=== PATIENT | female | born 2000 | race Two or more races ===

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

== ENCOUNTER → 2018-02-03 | Outpatient (REF) | payer OTHER ==
[2018-02-03 22:02] LABS: APPEARANCE, URINE CLEAR (CLEAR); BACTERIA, URINE AUTO 1+ (NEGATIVE); BILIRUBIN, URINE AUTO NEGATIVE (NEGATIVE); BLOOD, URINE BLOOD 1+ (NEGATIVE); COLOR, URINE YELLOW (YELLOW); GLUCOSE, URINE (UA) AUTO NEGATIVE (NEGATIVE); KETONE, URINE AUTO NEGATIVE (NEGATIVE); LEUKOCYTE ESTERASE, URINE AUTO TRACE (NEGATIVE); MUCUS, URINE SMALL (NEGATIVE); NITRITE, URINE AUTO NEGATIVE (NEGATIVE); PROTEIN, URINE AUTO NEGATIVE (NEGATIVE); RBC, URINE AUTO 2 /HPF (0-3); SPECIFIC GRAVITY URINE AUTO 1.024 (1.002-1.035); SQUAMOUS EPITHELIAL CELL UR AU 10 /HPF (0-6); WBC, URINE AUTO 5 /HPF (0-3)
== END ==
LOC: M LAB REF 09:52
DX: N39.0 Urinary tract infection, site not specified (principal)

== ENCOUNTER 2018-07-28 16:48 | Emergency (ER) | payer OTHER ==
[2018-07-28] MEDS: LIDOCAINE 2% W/EPIN INJ 20ML **PRES FREE INJ (17:00)
[2018-07-28] MEDS ORDERED: LIDOCAINE W/EPINEPHRINE 1% 20ML VIAL SC (17:15)
== END 2018-07-28 18:22 | disposition home or self-care (01) ==
LOC: M ED 16:48
DX: S51.812A Laceration without foreign body of left forearm, initial encounter (principal); W26.9XXA Contact with unspecified sharp object(s), initial encounter; Y92.9 Unspecified place or not applicable; Y93.9 Activity, unspecified; Y99.9 Unspecified external cause status; Z91.5 Personal history of self-harm
CPT/HCPCS: 12001

== ENCOUNTER 2018-12-11 14:04 | Emergency (ER) | payer OTHER ==
[~2018-12-11] VITALS: Ht 175.3 cm; Wt 104.5 kg
[~2018-12-11 14:04] MED LIST changes: +BACI50OI EXT; +IBUP-1022 PO; +MACR100C43 PO; +PYRI1TAB5 PO; +ROBA500T PO
[2018-12-11] MEDS ORDERED: AUGM875T28 PO (15:51)
[2018-12-11] MEDS ORDERED: MAGICMW SSP (15:51)
[2018-12-11] MEDS ORDERED: PRED20TA PO (15:52)
[2018-12-11] MEDS ORDERED: IBUPROFEN 800 MG TAB PO ONE (16:00)
[2018-12-11] MEDS ORDERED: AUGMENTIN 875 MG TAB PO ONE (16:00)
[2018-12-11 16:13] VITALS: BP 138/76
== END 2018-12-11 16:14 | disposition home or self-care (01) ==
LOC: M ED 14:04
DX: J01.90 Acute sinusitis, unspecified (principal); J03.90 Acute tonsillitis, unspecified

== ENCOUNTER → 2019-03-14 | Outpatient (CLI) | payer OTHER ==
[~2019-03-14] MED LIST changes: +AUGM875T28 PO; +MAGICMW SSP; +PRED20TA PO
--- NOTE | 2019-03-15 09:51 | REP ---
Clinical: Dating and viability. Technique: Transabdominal and transvaginal first trimester obstetrical channel with color Doppler evaluation. Findings: Single live early intrauterine is appreciated. Gestational sac with yolk sac and pole identified. Alden-rump length of 15 mm corresponds to 7 weeks 6 days gestational age with estimated date of delivery 10/25/2019 . heart rate equals 163 beats per minute. No gross abnormalities are identified. Impression: Single live early intrauterine at 7 weeks 6 days gestational age. Complete anatomical assessment should be performed and 19-20 weeks. Electronically Signed by Alejo Hayes MD 03/15/2019 09:43 A
== END ==
LOC: M RAD 10:30
PROVIDERS: ATTEND Nurse Practitioner Family
DX: Z36.9 Encounter for antenatal screening, unspecified (principal); Z3A.01 Less than 8 weeks gestation of pregnancy

== ENCOUNTER → 2019-03-25 | Outpatient (REF) | payer OTHER ==
[2019-03-25 13:30] LABS: HEMATOCRIT 38.9 % (36.0-47.0); HEMOGLOBIN 12.7 g/dl (12.0-15.5); MEAN CORPUSCULAR HEMOGLOBIN 30.2 pg (27.0-33.0); MEAN CORPUSCULAR HGB CONC 32.6 g/dl (32.0-36.5); MEAN CORPUSCULAR VOLUME 92.4 fl (80.0-96.0); PLATELET COUNT, AUTOMATED 240 10^3/uL (150-450); RED BLOOD COUNT 4.21 10^6/uL (4.00-5.40); WHITE BLOOD COUNT 6.8 10^3/uL (4.0-10.0)
[2019-03-25 13:44] LABS: HCG, SERUM QUANTITATIVE 71146 MIU/ML
[2019-03-25 13:50] LABS: RUBELLA IgG QUALITATIVE IMMUNE (IMMUNE)
[2019-03-25 13:51] LABS: HEPATITIS B SURFACE ANTIGEN NEGATIVE (NEGATIVE)
[2019-03-25 14:05] LABS: HEMOGLOBIN A1c 5.5 %
[2019-03-25 14:19] LABS: HEPATITIS C VIRUS ABY INDEX 0.1 INDEX (<0.8); HIV 1&2 SCREEN CENTAUR NEGATIVE (NEGATIVE)
[2019-03-28 00:14] LABS: HEMOGLOBIN A 97.5 % (96.4-98.8); HEMOGLOBIN A2 2.5 % (1.8-3.2); HGB SOLUBILITY Negative (Negative)
== END ==
LOC: M LAB REF 12:24
PROVIDERS: ATTEND Nurse Practitioner Women's Health
DX: Z34.01 Encounter for supervision of normal first pregnancy, first trimester (principal)

== ENCOUNTER → 2019-08-15 | Outpatient (CLI) | payer OTHER ==
[2019-08-15 19:43] LABS: HEMATOCRIT 38.9 % (36.0-47.0); HEMOGLOBIN 11.9 g/dl (12.0-15.5); MEAN CORPUSCULAR HEMOGLOBIN 29.8 pg (27.0-33.0); MEAN CORPUSCULAR HGB CONC 30.6 g/dl (32.0-36.5); MEAN CORPUSCULAR VOLUME 97.3 fl (80.0-96.0); PLATELET COUNT, AUTOMATED 223 10^3/uL (150-450); WHITE BLOOD COUNT 9.4 10^3/uL (4.0-10.0)
== END ==
LOC: M WUC 11:34
PROVIDERS: ATTEND Nurse Practitioner Women's Health
DX: Z34.02 Encounter for supervision of normal first pregnancy, second trimester (principal)

== ENCOUNTER → 2019-09-26 | Outpatient (REF) | payer OTHER | LOC: M LAB REF 13:18 | PROVIDERS: ATTEND Obstetrics & Gynecology | DX: Z36.85 Encounter for antenatal screening for Streptococcus B (principal) ==

== ENCOUNTER 2019-10-16 23:15 | Inpatient (IN) | payer OTHER ==
[~2019-10-16] VITALS: Ht 172.7 cm; Wt 116.2 kg
[2019-10-16 23:37] VITALS: BP 124/76
[2019-10-17] VITALS (43 sets, daily range): BP systolic 107–153; BP diastolic 53–90
[2019-10-17] MEDS ORDERED: LACTATED RINGER'S 1000 ML IV STA (00:30)
[2019-10-17] MEDS ORDERED: LR 1,000 ML IV SCH ×2 (00:30→09:15)
[2019-10-17 00:57] LABS: BASO % 0.3 % (0.0-1.0); EOS % 0.1 % (0.0-3.0); HEMATOCRIT 37.9 % (36.0-47.0); HEMOGLOBIN 12.3 g/dl (12.0-15.5); LYMPH # 2.6 10^3/uL (1.5-5.0); LYMPH % 18.4 % (24.0-44.0); MEAN CORPUSCULAR HEMOGLOBIN 29.7 pg (27.0-33.0); MEAN CORPUSCULAR HGB CONC 32.5 g/dl (32.0-36.5); MEAN CORPUSCULAR VOLUME 91.5 fl (80.0-96.0); NEUTROPHILS # 10.5 10^3/uL (1.5-8.5); NEUTROPHILS % 73.8 % (36.0-66.0); PLATELET COUNT, AUTOMATED 271 10^3/uL (150-450); RED BLOOD COUNT 4.14 10^6/uL (4.00-5.40); WHITE BLOOD COUNT 14.2 10^3/uL (4.0-10.0)
[2019-10-17] MEDS ORDERED: OXYTOCIN 30 UNITS IN 0.9% NaCl 500ML IV BAG (J2590) As Ordered ONE ×2 (01:50→08:38)
[2019-10-17] MEDS ORDERED: FENTANYL 2MCG/ML ROPIVACAINE 0.2% IN 0.9% NACL 100ML IVBAG As Ordered ONE (01:53)
[2019-10-17] MEDS ORDERED: miSOPROStol 50 MCG 1/2 TAB (S0191) As Ordered ONE (02:19)
[2019-10-17] MEDS ORDERED: miSOPROStol 50 MCG 1/2 TAB (S0191) PO SCH (02:30)
[2019-10-17] MEDS ORDERED: ONDANSETRON 4MG/2ML VIAL (J2405) IV PRN ×2 (02:55→09:15)
[2019-10-17] MEDS ORDERED: REFRIGERATOR IV KEYS XX PRN (02:55)
[2019-10-17] MEDS ORDERED: ePHEDrine SULFATE 25 MG/5 ML(5MG/ML) SYRINGE IV PRN (02:55)
[2019-10-17] MEDS ORDERED: LACTATED RINGER'S 1000 ML IV PRN (02:55)
[2019-10-17] MEDS ORDERED: NALOXONE INJ 0.4 MG/1 ML VIAL (J2310) IV PRN ×3 (02:55→08:20)
[2019-10-17] MEDS ORDERED: diphenhydrAMINE INJ 50MG/ML VIAL (J1200) IV PRN ×2 (02:55→08:20)
[2019-10-17] MEDS ORDERED: EPIDURAL/PCA KEYS XX PRN (02:55)
[2019-10-17] MEDS ORDERED: EPIDURAL COMMENT XX SCH (02:55)
[2019-10-17] MEDS ORDERED: FENTANYL/ROPIVACAINE/NACL BAG 100 ML EPIDURAL SCH (02:55)
--- NOTE | 2019-10-17 05:24 | HPE ---
DATE OF ADMISSION: 10/17/2019 HISTORY OF PRESENT ILLNESS: Flori is a 19-year-old female 1, para 0 with an estimated date of confinement (EDC) of 10/31/2019, estimated gestational age (EGA) 38-1/7 weeks gestation who presented to labor and delivery with gross rupture of membrane, meconium-stained fluid. The patient with irregular contractions. Her record reviewed which was essentially unremarkable. The patient was a late registrant to our office in her second trimester. Her lab blood type is O+, rubella immune, hepatitis negative, HIV negative, GC chlamydia negative, 1-hour sugar testing was within normal limits. Her GBS is negative. PAST MEDICAL HISTORY: Significant for obesity. PAST SURGICAL HISTORY: Denies. SOCIAL HISTORY: She denies any alcohol, drug or cigarette smoking. FAMILY HISTORY: Significant for alcoholism and liver disease and bipolar disorder. MEDICATIONS: - vitamin ALLERGIES: No known drug allergies. PHYSICAL EXAMINATION ON ADMISSION: General: Obese female in no acute distress. Abdomen: Soft, nontender, nondistended. Extremities: No clubbing, cyanosis or edema. Vaginal exam: 1-2 cm dilated, grossly ruptured meconium-stained fluid. Fetus in vertex position. Tracing reviewed category one tracing with irregular contractions. ASSESSMENT: Intrauterine at 38 weeks gestation with gross rupture of membrane, meconium-stained stained fluid in early labor. PLAN: Admit to labor and delivery. Routine labs sent. Induction discussed with the patient, will initiate Cytotec, pain management also discussed. The patient opts for an epidural will continue to monitor. Anticipate delivery.
[2019-10-17] MEDS ORDERED: ceFAZolin SOD 2 GM in IV 1 EA IV ONE (07:30)
[2019-10-17] MEDS ORDERED: BICITRA 30ML SOLN UDC PO ONE (07:30)
[2019-10-17] MEDS ORDERED: BICITRA 30ML SOLN UDC As Ordered ONE (07:33)
[2019-10-17] MEDS ORDERED: ceFAZolin 2 GM/D5W 50 ML IV BAG (J0690 PER 500MG) As Ordered ONE (07:33)
[2019-10-17] MEDS ORDERED: NALBUPHINE HCL 10 MG/ML AMP (J2300) IV PRN (08:20)
[2019-10-17] MEDS ORDERED: METOCLOPRAMIDE INJ 10MG/2ML VIAL (J2765) IV PRN (08:20)
[2019-10-17] MEDS ORDERED: KETOROLAC 60 MG/2 ML VIAL (J1885) As Ordered ONE (08:36)
[2019-10-17] MEDS ORDERED: fentaNYL 100 MCG/2 ML INJECTION (J3010) As Ordered ONE (08:36)
[2019-10-17] MEDS ORDERED: BUPIVACAINE HCL 0.5% 30 ML VIAL As Ordered ONE (08:36)
[2019-10-17] MEDS ORDERED: MIDAZOLAM INJ 2 MG/2 ML VIAL (J2250) As Ordered ONE (08:36)
[2019-10-17] MEDS ORDERED: KETAMINE HCL 200 MG/20 ML VIAL As Ordered ONE (08:36)
[2019-10-17] MEDS ORDERED: ONDANSETRON 4MG/2ML VIAL (J2405) As Ordered ONE (08:36)
[2019-10-17] MEDS ORDERED: dexameTHASONE 4 MG/ML 1ML VIAL (J1100) As Ordered ONE (08:36)
[2019-10-17] MEDS ORDERED: MORPHINE PRES-FREE INJ 10 MG/10 ML VIAL (J2274) As Ordered ONE (08:36)
[2019-10-17] MEDS ORDERED: LIDOCAINE 2% W/EPIN INJ 20ML **PRES FREE As Ordered ONE (08:36)
[2019-10-17] MEDS ORDERED: OXYTOCIN DRIP 30 UNITS in IV 1 EA IV SCH (08:43)
[2019-10-17] MEDS ORDERED: MEASLES,MUMPS,RUBELLA VACCINE INJ (MMR-II) (90707) SC SCH (08:45)
[2019-10-17] MEDS ORDERED: ACETAMINOPHEN TAB 650MG DOSE (2X325MG) PO PRN (08:45)
[2019-10-17] MEDS ORDERED: ONDANSETRON 4 MG TAB (S0181) PO PRN (08:45)
[2019-10-17] MEDS ORDERED: RHOGAM 300 MCG (1500 IU) INJ (J2790) IM SCH (08:45)
[2019-10-17 08:56] LABS: CORD GAS ABE V -5.2; CORD GAS O2 SAT V 68.7 %; CORD GAS PCO2 V 48.7 mmHg; CORD GAS PH V 7.273 UNITS; CORD GAS PO2 V 30.5 mmHg; CORD GAS SBC V 19.6 MEQ/L; CORD GAS TCO2 V 23.5 MEQ/L
[2019-10-17 08:58] LABS: CORD GAS HCO3 A 27.8 MEQ/L; CORD GAS O2 SAT A 23.8 %; CORD GAS PCO2 A 63.8 mmHg; CORD GAS PH A 7.257 UNITS; CORD GAS PO2 A 14.6 mmHg; CORD GAS SBC A 21.8 MEQ/L; CORD GAS TCO2 A 29.8 MEQ/L
[2019-10-17] MEDS: PRENATAL VITAMINS CHEWABLE TABLET PO SCH (09:00)
[2019-10-17] MEDS: DOCUSATE SODIUM 100 MG CAP PO SCH ×2 (09:00→22:20)
[2019-10-17] MEDS ORDERED: fentaNYL 100 MCG/2 ML INJECTION (J3010) IV PRN (09:15)
[2019-10-17] MEDS ORDERED: PERCOCET 5MG/325MG TAB PO PRN (09:15)
[2019-10-17] MEDS ORDERED: BUPIVACAINE HCL 0.5% 30 ML VIAL SC ONE (09:45)
[2019-10-17] MEDS: KETOROLAC 30 MG/ML VIAL (J1885) IV SCH ×2 (15:09→19:46)
[2019-10-17] MEDS: ONDANSETRON 4MG/2ML VIAL (J2405) IV PRN ×2 (15:10→19:33)
--- NOTE | 2019-10-17 15:29 | RO ---
DATE OF PROCEDURE: 10/17/2019 Flori is a 19-year-old female 1, para 0 who presented at 38-1/7 weeks gestation with spontaneous rupture of membrane, meconium-stained fluid. She underwent an epidural and had repetitive late deceleration even after repositioning oxygen and amnioinfusion. Given that she was remote from delivery at this point a decision was made to proceed with a primary section. PREOPERATIVE DIAGNOSES: 1. Intrauterine at 38-1/7 week gestation with spontaneous rupture of membrane, meconium-stained fluid. 2. Non-reassuring heart rate tracing remote from delivery. POSTOPERATIVE DIAGNOSES: 1. Intrauterine at 38-1/7 week gestation with spontaneous rupture of membrane, meconium-stained fluid. 2. Non-reassuring heart rate tracing remote from delivery. PROCEDURE: Primary low transverse section via Pfannenstiel incision. ANESTHESIA: Epidural. SURGEON Dr. Mondragon FORECAST ANALYST: Dr. Sanon COMPLICATIONS: None. ESTIMATED BLOOD LOSS: 600 mL. FINDINGS: Live female in occiput transverse position. scores 8 and 9. weight 7 pounds 5 ounces. Normal-appearing placenta and normal tubes and ovaries. PROCEDURE: After obtaining informed consent the patient was taken to the operating room where epidural anesthetic was found to be adequate. She was then draped and prepped in the usual sterile fashion. In the supine position, with the help of my assistant store manager operations Dr. Sanon, a Pfannenstiel incision was made. This was carried down to the fascia. Fascia was incised in midline fashion and carried through laterally. Superior aspect of the fascia then grasped with Belen clamp, then tented off and dissected off the rectus muscles sharply. The inferior aspect was dissected off in similar fashion. Rectus muscles midline fashion. Perineum identified. Perineal cavity entered bluntly. Superior and inferior dissection of the peritoneum was then done with good visualization of the bladder. At this point a Mobius skin retractor was placed. A low-transverse uterine incision was made. Infant was delivered in atraumatic fashion. Nose and mouth bulb suctioned. Cord doubly clamped and cut and was handed over to awaiting warmer. Cord blood and cord gas were sent. Placenta removed manually. Uterus cleared of all clot and debris and the uterine incision was then repaired in two separate layers of 0 Vicryl sutures. Pelvis copiously irrigated with normal saline and suctioned out. Attention turned to the peritoneum which was closed in running fashion using 2-0 Vicryl. Fascia closed in two separate segment of 0 Vicryl sutures and the skin was re-approximated in subcuticular fashion using 3-0 Vicryl on a Bello. Steri-Strips placed. 0.25% Marcaine was placed at the operative site for postoperative pain. The patient tolerated procedure well. She was then transferred to recovery room in stable condition. MAUREEN
[2019-10-17] MEDS ORDERED: LR 500 ML IV ONE (19:15)
[2019-10-18 02:00] VITALS: BP 106/56
[2019-10-18] MEDS: KETOROLAC 30 MG/ML VIAL (J1885) IV SCH (02:11)
[2019-10-18 06:00] VITALS: BP 119/63
--- NOTE | 2019-10-18 07:51 | POST-OPPD ---
Postoperative Procedure Note Date Of Procedure: Oct 18, 2019 S: Doing well w/o complaints. Pain well controlled. + ambulation and voids. O: vss, AF geN: well appearing abd: soft, FF@u-2 incision: c/d/i ext: calf tenderness A/P: POD#1 s/p 1LTCS - recovering in stable condition -cont routine postop care -d/c plan tomorrow GILBERT TUCKER MD. Oct 18, 2019 07:51
[2019-10-18] MEDS: DOCUSATE SODIUM 100 MG CAP PO SCH ×2 (07:59→21:11)
[2019-10-18] MEDS: PRENATAL VITAMINS CHEWABLE TABLET PO SCH (07:59)
[2019-10-18 08:42] LABS: HEMATOCRIT 30.6 % (36.0-47.0); HEMOGLOBIN 9.7 g/dl (12.0-15.5); MEAN CORPUSCULAR HEMOGLOBIN 29.7 pg (27.0-33.0); MEAN CORPUSCULAR HGB CONC 31.7 g/dl (32.0-36.5); MEAN CORPUSCULAR VOLUME 93.6 fl (80.0-96.0); PLATELET COUNT, AUTOMATED 173 10^3/uL (150-450); RED BLOOD COUNT 3.27 10^6/uL (4.00-5.40); WHITE BLOOD COUNT 11.3 10^3/uL (4.0-10.0)
[2019-10-18] MEDS: IBUPROFEN 800 MG TAB PO SCH ×2 (09:35→18:00)
[2019-10-18 10:05] VITALS: BP 135/60
[2019-10-18] MEDS: PERCOCET 5MG/325MG TAB PO PRN ×2 (15:01→21:11)
[2019-10-18 17:57] VITALS: BP 132/67
[2019-10-18 22:00] VITALS: BP 113/58
[2019-10-19 02:00] VITALS: BP 122/71
[2019-10-19] MEDS: IBUPROFEN 800 MG TAB PO SCH ×2 (02:59→11:11)
[2019-10-19 06:00] VITALS: BP 133/67
--- NOTE | 2019-10-19 07:11 | DS.PDOC ---
Discharge Summary General Date of Admission Oct 17, 2019 at 00:11 Date of Discharge Sep Discharge Summary PROCEDURES PERFORMED DURING STAY: Primary section ADMITTING DIAGNOSES: 1. Prelabor rupture of membranes @ term 2. Meconium stained fluid DISCHARGE DIAGNOSES: 1. Primary section for nonreassuring status 2. Meconium stained fluid COMPLICATIONS/CHIEF COMPLAINT: Labor Check. HISTORY OF PRESENT ILLNESS: 19yo G1 EVIE 10/31/2019. Presented at 38w1d with complaints of spontaneous rupture of membranes. Meconium stained fluid noted. Induction of labor was attempted. Primary performed by Dr Mondragon for non reassuring status HOSPITAL COURSE: Ms Hoang reports adequate pain management. She is tolerating a regular diet. on demand. Out of bed independently. Voiding and passing flatus. DISCHARGE MEDICATIONS: Please see below. ALLERGIES: Please see below. PHYSICAL EXAMINATION ON DISCHARGE: VITAL SIGNS: Please see below. GENERAL: NAD HEENT: WNL NECK: Supple CARDIOVASCULAR EXAMINATION: HRR, normotensive RESPIRATORY EXAMINATION: Clear and unlabored ABDOMINAL EXAMINATION: Fundus firm. Steri strips in place. Wound clean, dry, well approximated without evidence infection EXTREMITIES: Equal strength and motion SKIN: Intact NEUROLOGICAL EXAMINATION: Grossly intact PSYCHIATRIC EXAMINATION: Appropriate LABORATORY DATA: Please see below. PROGNOSIS: Good ACTIVITY: As tolerated DIET: As tolerated DISCHARGE PLAN: Discharge today. Routine precautions. RTO 2 wks and 6 wks DISPOSITION:Home DISCHARGE INSTRUCTIONS: 1. Continue PNV. Ibuprofen around the clock. Supplement with percocet prn. 2. Routine precautions. Pelvic rest. Call with fever, N/V, foul lochia or wound exudate. DISCHARGE CONDITION: Stable Vital Signs/I&Os Vital Signs Date Time Temp Pulse Resp B/P (MAP) Pulse Ox O2 Delivery O2 Flow Rate FiO2 10/19/19 06:00 98.2 60 17 133/67 (89) 98 Room Air Laboratory Data Labs 24H Laboratory Tests 2 10/18/19 08:14: Nucleated Red Blood Cells % (auto) 0.0 CBC/BMP Laboratory Tests 10/18/19 08:14 Discharge Medications Scheduled Amoxicillin/Potassium Clav (Augmentin 875-125 Tablet) 1 Each Tablet, 1 TAB PO BID Prednisone (Prednisone) 20 Mg Tablet, 40 MG PO DAILY Scheduled PRN Ibuprofen (Ibuprofen) 600 Mg Tab, 600 MG PO Q6H PRN for PAIN Magic Mouthwash (First-Mouthwash Blm) 1 Ea Susp, 10 ML SSP QID PRN for MUCOSITIS (Diphenhydramine/maalox/lidocaine 1:1:1) May compound if kit unavailable/not covered by insurance Allergies Coded Allergies: No Known Allergies (Verified , 07/28/18) Madiha Suarez CNM Oct 19, 2019 07:11
[2019-10-19] MEDS ORDERED: IBUP80TA PO (07:16)
[2019-10-19] MEDS ORDERED: PERCOCET PO (07:16)
[2019-10-19] MEDS: PRENATAL VITAMINS CHEWABLE TABLET PO SCH (08:15)
[2019-10-19] MEDS: PERCOCET 5MG/325MG TAB PO PRN (08:16)
[2019-10-19] MEDS: DOCUSATE SODIUM 100 MG CAP PO SCH (08:16)
[2019-10-19] MEDS ORDERED: ADACEL/BOOSTRIX VACCINE (DIPHTH/PERTUSS/ACELL/TETANUS)0.5ML SYR (90715) IM ONE (09:00)
== END 2019-10-19 13:35 | disposition home or self-care (01) | DRG 540 ==
LOC: M LDO 23:15 → M LDI 10-17 00:11 → M OBS 10-17 10:49
PROVIDERS: ADMIT Obstetrics & Gynecology; ATTEND Obstetrics & Gynecology
PROC: 10D00Z1 Extraction of Products of Conception, Low, Open Approach (ICD-10-PCS; principal; 2019-10-17 07:37)
DX: O42.10 Premature rupture of membranes, onset of labor more than 24 hours following rupture, unspecified weeks of gestation (principal); Z3A.38 38 weeks gestation of pregnancy; Z37.0 Single live birth; O99.214 Obesity complicating childbirth; E66.9 Obesity, unspecified; O77.0 Labor and delivery complicated by meconium in amniotic fluid; O76 Abnormality in fetal heart rate and rhythm complicating labor and delivery; O99.62 Diseases of the digestive system complicating childbirth; K12.30 Oral mucositis (ulcerative), unspecified

== ENCOUNTER → 2020-02-15 | Outpatient (REF) | payer OTHER ==
[~2020-02-15] MED LIST changes: +IBUP80TA PO; +PERCOCET PO
== END ==
LOC: M LAB 17:10
PROVIDERS: ATTEND Physician Assistant Medical
DX: K13.70 Unspecified lesions of oral mucosa (principal)

== ENCOUNTER → 2020-10-05 | Outpatient (REF) | payer OTHER ==
[2020-10-05 18:41] LABS: HEMATOCRIT 39.4 % (36.0-47.0); HEMOGLOBIN 11.9 g/dl (12.0-15.5); MEAN CORPUSCULAR HEMOGLOBIN 27.8 pg (27.0-33.0); MEAN CORPUSCULAR HGB CONC 30.2 g/dl (32.0-36.5); MEAN CORPUSCULAR VOLUME 92.1 fl (80.0-96.0); PLATELET COUNT, AUTOMATED 266 10^3/uL (150-450); RED BLOOD COUNT 4.28 10^6/uL (4.00-5.40)
[2020-10-05 19:11] LABS: ALBUMIN 3.8 GM/DL (3.2-5.2); ALT/SGPT 18 U/L (12-78); BILIRUBIN,TOTAL 0.3 MG/DL (0.2-1.0); BLOOD UREA NITROGEN 5 MG/DL (7-18); CALCIUM LEVEL 8.8 MG/DL (8.5-10.1); CARBON DIOXIDE LEVEL 29 MEQ/L (21-32); CHLORIDE LEVEL 106 MEQ/L (98-107); CREATININE FOR GFR 0.72 MG/DL (0.55-1.30); FREE T4 0.84 NG/DL (0.76-1.46); GLOMERULAR FILTRATION RATE > 60.0 (>60); GLUCOSE, FASTING 103 MG/DL (70-100); POTASSIUM SERUM 4.2 MEQ/L (3.5-5.1); SODIUM LEVEL 140 MEQ/L (136-145); TOTAL PROTEIN 7.3 GM/DL (6.4-8.2)
== END ==
LOC: M SFHCPLAZ 14:53
PROVIDERS: ATTEND Nurse Practitioner Family
DX: Z13.228 Encounter for screening for other metabolic disorders (principal)

== ENCOUNTER → 2021-01-17 | Outpatient (REF) | payer OTHER | LOC: EEVIPCON 19:03 → M LAB REF 19:03 | PROVIDERS: ATTEND Nurse Practitioner Family | DX: L02.415 Cutaneous abscess of right lower limb (principal) ==

== ENCOUNTER → 2021-03-12 | Outpatient (REF) | payer OTHER | LOC: M SFHCPLAZ 17:04 | PROVIDERS: ATTEND Nurse Practitioner Family | DX: L03.115 Cellulitis of right lower limb (principal) ==

== ENCOUNTER 2022-08-11 11:00 | Emergency (ER) | payer OTHER ==
[~2022-08-11] VITALS: Ht 172.7 cm; Wt 118.1 kg
[2022-08-11 11:00] VITALS: BP 136/85
[2022-08-11] MEDS ORDERED: BACTDSTA (11:45)
[2022-08-11] MEDS ORDERED: MUPI2OI (11:45)
== END 2022-08-11 13:22 | disposition left against medical advice (07) ==
LOC: M ED 11:00
DX: Z53.21 Procedure and treatment not carried out due to patient leaving prior to being seen by health care provider (principal)

== ENCOUNTER → 2022-10-20 | Outpatient (REF) | payer OTHER ==
[~2022-10-20] MED LIST changes: +BACTDSTA; +MUPI2OI
[2022-10-20 22:36] LABS: APPEARANCE, URINE HAZY (CLEAR); BACTERIA, URINE AUTO 1+ (NEGATIVE); BILIRUBIN, URINE AUTO 1+ (NEGATIVE); BLOOD, URINE BLOOD NEGATIVE (NEGATIVE); COLOR, URINE AMBER (YELLOW); GLUCOSE, URINE (UA) AUTO NEGATIVE (NEGATIVE); KETONE, URINE AUTO TRACE mg/dL (NEGATIVE); LEUKOCYTE ESTERASE, URINE AUTO TRACE (NEGATIVE); MUCUS, URINE LARGE (NEGATIVE); NITRITE, URINE AUTO NEGATIVE (NEGATIVE); PROTEIN, URINE AUTO 1+ mg/dL (NEGATIVE); RBC, URINE AUTO 2 /HPF (0-3); SPECIFIC GRAVITY URINE AUTO 1.038 (1.002-1.035); SQUAMOUS EPITHELIAL CELL UR AU 8 /HPF (0-6); TRIPLE PHOSPHATE CRYSTALS SMALL; WBC, URINE AUTO 1 /HPF (0-3)
[2022-10-20 22:40] LABS: URINE PREG TEST NEGATIVE (NEGATIVE)
== END ==
LOC: M LAB REF 22:07
PROVIDERS: ATTEND Physician Assistant
DX: N39.0 Urinary tract infection, site not specified (principal)

== ENCOUNTER → 2022-11-15 | Outpatient (CLI) | payer OTHER | LOC: M PLAIMG 15:43 | PROVIDERS: ATTEND Nurse Practitioner Family | DX: M54.2 Cervicalgia (principal) ==

== ENCOUNTER → 2023-06-06 | Outpatient (REF) | payer OTHER ==
[2023-06-06 19:18] LABS: GC DNA AMPLIFICATION POSITIVE (NEGATIVE)
== END ==
LOC: M LAB REF 16:13
PROVIDERS: ATTEND Nurse Practitioner Family
DX: R30.0 Dysuria (principal); Z11.3 Encounter for screening for infections with a predominantly sexual mode of transmission

== ENCOUNTER → 2024-01-09 | Outpatient (REF) | payer OTHER ==
[2024-01-09 22:51] LABS: Trichomonas vaginalis (AMP) NOT DETECTED (NEGATIVE)
[2024-01-09 23:14] LABS: GC DNA AMPLIFICATION NEGATIVE (NEGATIVE)
== END ==
LOC: M LAB REF 21:04
PROVIDERS: ATTEND Physician Assistant
DX: R30.0 Dysuria (principal); Z20.2 Contact with and (suspected) exposure to infections with a predominantly sexual mode of transmission

== ENCOUNTER → 2024-09-24 | Outpatient (REF) | payer OTHER, MEDICAID ==
[2024-09-24 13:52] LABS: HEMATOCRIT 37.6 % (36.0-47.0); HEMOGLOBIN 12.2 g/dl (12.0-15.5); MEAN CORPUSCULAR HEMOGLOBIN 29.6 pg (27.0-33.0); MEAN CORPUSCULAR HGB CONC 32.4 g/dl (32.0-36.5); MEAN CORPUSCULAR VOLUME 91.3 fl (80.0-96.0); PLATELET COUNT, AUTOMATED 240 10^3/uL (150-450); RED BLOOD COUNT 4.12 10^6/uL (4.00-5.40); WHITE BLOOD COUNT 9.7 10^3/uL (4.0-10.0)
[2024-09-24 14:16] LABS: HIV 1&2 SCREEN NEGATIVE (NEGATIVE)
[2024-09-24 14:24] LABS: HEPATITIS C VIRUS ABY INDEX 0.13 INDEX (<0.8)
== END ==
LOC: M LAB REF 12:35
PROVIDERS: ATTEND Obstetrics & Gynecology
DX: O36.80X0 Pregnancy with inconclusive fetal viability, not applicable or unspecified (principal); Z32.01 Encounter for pregnancy test, result positive

== ENCOUNTER → 2024-11-12 | Outpatient (CLI) | payer OTHER ==
[2024-11-12 14:55] LABS: HEMATOCRIT 35.9 % (36.0-47.0); HEMOGLOBIN 11.8 g/dl (12.0-15.5); MEAN CORPUSCULAR HGB CONC 32.9 g/dl (32.0-36.5); MEAN CORPUSCULAR VOLUME 94.2 fl (80.0-96.0); PLATELET COUNT, AUTOMATED 244 10^3/uL (150-450); RED BLOOD COUNT 3.81 10^6/uL (4.00-5.40)
[2024-11-13 07:18] LABS: WHITE BLOOD COUNT 10.1 10^3/uL (4.0-10.0)
== END ==
LOC: M WUC 11:08
PROVIDERS: ATTEND Obstetrics & Gynecology
DX: Z34.82 Encounter for supervision of other normal pregnancy, second trimester (principal); Z3A.00 Weeks of gestation of pregnancy not specified

== ENCOUNTER → 2024-11-18 | Outpatient (CLI) | payer OTHER | LOC: M RAD 16:35 | PROVIDERS: ATTEND Obstetrics & Gynecology | DX: Z34.82 Encounter for supervision of other normal pregnancy, second trimester (principal) ==

== ENCOUNTER → 2025-05-15 | Outpatient (REF) | payer OTHER ==
[~2025-05-15] MED LIST changes: +AMOX875T2 PO; -IBUP-1022 PO; +IBUP600T42 PO; +PRENTAB9 PO; +TUMS500C PO
[2025-05-15 19:57] LABS: Trichomonas vaginalis (AMP) POSITIVE (NEGATIVE)
[2025-05-15 20:30] LABS: GC DNA AMPLIFICATION NEGATIVE (NEGATIVE)
== END ==
LOC: M LAB REF 17:11
PROVIDERS: ATTEND Physician Assistant
DX: R30.0 Dysuria (principal)